=== PATIENT | female | born 1970 | race Caucasian/White ===

== ENCOUNTER → 2018-09-17 | Outpatient (REF) | payer OTHER | LOC: M SFHCLERA 16:58 | PROVIDERS: ATTEND Nurse Practitioner Family | DX: R53.81 Other malaise (principal) ==

== ENCOUNTER → 2019-01-12 | Outpatient (CLI) | payer OTHER ==
--- NOTE | 2019-01-12 10:41 | REP ---
HIDA SCAN WITH GALLBLADDER EJECTION FRACTION: Following the intravenous administration of 6.6 mCi of technetium-99m mebrofenin, multiple images of the right upper quadrant are performed every 5 minutes for a period of 1 hour. The gallbladder is visualized at 10 minutes postinjection. There is biliary to bowel transit at 15 minutes postinjection. There is no scintigraphic evidence of cholecystitis. At the 1 hour tulio 8 ounces of Ensure Enlive are ingested and further imaging performed for 1 hour. Gallbladder activity is measured. The gallbladder ejection fraction is calculated to be 86% which is normal. IMPRESSION: Normal gallbladder ejection fraction. Electronically Signed by Francisco Hines MD 01/12/2019 02:40 P
== END ==
LOC: M RAD 07:10
PROVIDERS: ATTEND Internal Medicine Gastroenterology
DX: R10.9 Unspecified abdominal pain (principal)

== ENCOUNTER → 2021-06-17 | Outpatient (CLI) | payer BC | LOC: M PLALAB 14:37 | PROVIDERS: ATTEND Advanced Practice Midwife | DX: R63.5 Abnormal weight gain (principal) ==

== ENCOUNTER 2023-06-11 06:15 | Inpatient (IN) | payer BC ==
[~2023-06-11] VITALS: Ht 152.4 cm; Wt 88.0 kg
[~2023-06-11 06:15] MED LIST: AMIT25TA19 PO; BACI1CAP4 PO; BISO5TAB14 PO; CVS1CHW13 PO; DICY20TA3 PO; ESTR1TAB PO; LOPE1CAP5 PO; OMEP40CA4 PO; RA T500C2 PO; VITA100093 PO; VITA250C5 PO; ceFAZolin SOD 2 GM in IV 1 EA IV ONE
[2023-06-11] MEDS ORDERED: LR 1,000 ML IV SCH ×2 (06:35→12:30)
[2023-06-11] MEDS ORDERED: fentaNYL 100 MCG/2 ML INJECTION As Ordered ONE (07:12)
[2023-06-11] MEDS ORDERED: ROCURONIUM BROMIDE 50MG/5ML VIAL As Ordered ONE ×3 (07:12→10:47)
[2023-06-11] MEDS ORDERED: LIDOCAINE 2% 100MG/5ML SDV (FOR ANES.) As Ordered ONE (07:12)
[2023-06-11] MEDS ORDERED: ONDANSETRON 4MG 2ML VIAL As Ordered ONE (07:12)
[2023-06-11] MEDS ORDERED: MIDAZOLAM INJ 2MG/2ML VIAL As Ordered ONE (07:12)
[2023-06-11] MEDS ORDERED: ACETAMINOPHEN 1000MG 100ML IV BAG As Ordered ONE (07:12)
[2023-06-11] MEDS ORDERED: propofoL 200 MG/20 ML VIAL As Ordered ONE ×2 (07:12→11:14)
[2023-06-11] MEDS ORDERED: HYDROmorphone HCL 2MG/ML 1ML VIAL As Ordered ONE (07:12)
[2023-06-11] MEDS ORDERED: SUGAMMADEX SODIUM 500 MG/5 ML VIAL (BRIDION) As Ordered ONE (07:19)
[2023-06-11] MEDS ORDERED: LIDOCAINE 1% SDV 30ML VIAL As Ordered ONE (07:20)
[2023-06-11] MEDS ORDERED: PERCOCET 5MG/325MG TAB PO PRN (07:35)
[2023-06-11] MEDS ORDERED: ONDANSETRON 4MG 2ML VIAL IV PRN ×2 (07:35→12:30)
[2023-06-11] MEDS ORDERED: MANNITOL 25% 12.5GM 50ML VIAL As Ordered ONE (07:59)
[2023-06-11] MEDS ORDERED: FILTER 1.2 MICRON (ADULT TPN/MANNITOL/REMICADE) XX ONE (07:59)
[2023-06-11] MEDS: DOCUSATE SODIUM 100MG CAPSULE PO SCH ×2 (09:00→20:08)
[2023-06-11] MEDS ORDERED: fentaNYL 100 MCG/2 ML INJECTION IV PRN (12:30)
[2023-06-11] MEDS ORDERED: oxyCODONE 5MG TAB PO PRN (12:30)
[2023-06-11] MEDS: HYDROMORPHONE HCL 0.5 MG/ 0.5 ML SYRINGE IV PRN ×2 (12:54→13:01)
[2023-06-11 12:57] LABS: HEMATOCRIT 43.1 % (36.0-47.0); HEMOGLOBIN 14.2 g/dl (12.0-15.5); MEAN CORPUSCULAR HEMOGLOBIN 29.8 pg (27.0-33.0); MEAN CORPUSCULAR HGB CONC 32.9 g/dl (32.0-36.5); MEAN CORPUSCULAR VOLUME 90.5 fl (80.0-96.0); PLATELET COUNT, AUTOMATED 260 10^3/uL (150-450); RED BLOOD COUNT 4.76 10^6/uL (4.00-5.40); WHITE BLOOD COUNT 13.2 10^3/uL (4.0-10.0)
[2023-06-11 13:24] LABS: BLOOD UREA NITROGEN 14 MG/DL (9-23); CALCIUM LEVEL 8.4 MG/DL (8.5-10.1); CARBON DIOXIDE LEVEL 27 MMOL/L (20-31); CHLORIDE LEVEL 106 MMOL/L (98-107); CREATININE FOR GFR 0.65 MG/DL (0.55-1.30); GLOMERULAR FILTRATION RATE > 60.0 (>51); GLUCOSE, FASTING 164 MG/DL (60-100); POTASSIUM SERUM 4.7 MMOL/L (3.5-5.1); SODIUM LEVEL 140 MMOL/L (136-145)
[2023-06-11 14:25] VITALS: BP 118/75; TEMP 98.1; O2SAT 96
[2023-06-11 15:15] VITALS: BP_SYST 141; BP_SYST 183; BP_DIAS 78; BP_DIAS 81; TEMP 98.1; O2SAT 100; O2SAT 96
[2023-06-11] MEDS: NS 1,000 ML IV SCH ×2 (16:26→20:07)
[2023-06-11] MEDS: ceFAZolin SOD 1 GM in D5W MINI-BAG PLUS 50 ML IV SCH ×2 (16:27→23:27)
[2023-06-11 16:30] VITALS: BP 144/85; TEMP 98.1; O2SAT 95
[2023-06-11] MEDS: PERCOCET 5MG/325MG TAB PO PRN ×2 (17:04→21:09)
[2023-06-11 18:00] VITALS: BP 140/76; TEMP 98.4; O2SAT 94
[2023-06-11] MEDS ORDERED: LOPERAMIDE 2 MG CAPLET PO PRN (18:35)
[2023-06-11] MEDS ORDERED: DICY-61 PO (19:01)
[2023-06-11] MEDS ORDERED: HOME MED LIST COMPLETE! XX SCH (19:05)
[2023-06-11 19:30] VITALS: BP 135/73; TEMP 98.2; O2SAT 95
[2023-06-11] MEDS: OMEPRAZOLE 20MG CAP PO SCH (19:35)
[2023-06-11] MEDS ORDERED: OMEP-173 PO (19:40)
[2023-06-11] MEDS ORDERED: DICYCLOMINE 10 MG CAP PO ONE (20:00)
[2023-06-11] MEDS: DICYCLOMINE 10 MG CAP PO SCH (20:17)
[2023-06-11] MEDS ORDERED: DICYCLOMINE 10 MG CAP PO SCH (21:00)
[2023-06-11] MEDS ORDERED: AMITRIPTYLINE 25MG TABLET PO SCH (21:00)
[2023-06-11 23:30] VITALS: BP 140/72; TEMP 98.1; O2SAT 94
[2023-06-11] MEDS: ACETAMINOPHEN TAB 650MG DOSE (2X325MG) PO PRN (23:30)
[2023-06-12 03:30] VITALS: BP 132/70; TEMP 98.4; O2SAT 95
[2023-06-12] MEDS: ACETAMINOPHEN TAB 650MG DOSE (2X325MG) PO PRN (03:50)
[2023-06-12] MEDS: PERCOCET 5MG/325MG TAB PO PRN ×3 (05:23→13:27)
[2023-06-12 06:02] LABS: HEMATOCRIT 37.9 % (36.0-47.0); HEMOGLOBIN 12.5 g/dl (12.0-15.5); MEAN CORPUSCULAR HEMOGLOBIN 29.8 pg (27.0-33.0); MEAN CORPUSCULAR VOLUME 90.5 fl (80.0-96.0); PLATELET COUNT, AUTOMATED 298 10^3/uL (150-450); RED BLOOD COUNT 4.19 10^6/uL (4.00-5.40); WHITE BLOOD COUNT 15.2 10^3/uL (4.0-10.0)
[2023-06-12 06:26] LABS: BLOOD UREA NITROGEN 12 MG/DL (9-23); CARBON DIOXIDE LEVEL 27 MMOL/L (20-31); CHLORIDE LEVEL 106 MMOL/L (98-107); CREATININE FOR GFR 0.76 MG/DL (0.55-1.30); GLOMERULAR FILTRATION RATE > 60.0 (>51); GLUCOSE, FASTING 126 MG/DL (60-100); POTASSIUM SERUM 4.4 MMOL/L (3.5-5.1); SODIUM LEVEL 139 MMOL/L (136-145)
[2023-06-12 07:30] VITALS: BP 124/71; TEMP 98.1; O2SAT 90
[2023-06-12] MEDS: DOCUSATE SODIUM 100MG CAPSULE PO SCH (08:08)
[2023-06-12] MEDS ORDERED: INFLUENZA QUADRIVALENT PF VACCINE 0.5ML SYRINGE IM.IMMUN ONE (09:00)
[2023-06-12] MEDS ORDERED: bisoproloL fumarate 5 MG TAB PO SCH (09:00)
[2023-06-12 09:30] VITALS: BP 124/71
[2023-06-12] MEDS: OMEPRAZOLE 20MG CAP PO SCH (09:30)
[2023-06-12] MEDS: DICYCLOMINE 10 MG CAP PO SCH ×2 (09:30→13:29)
[2023-06-12 11:30] VITALS: BP 117/62; TEMP 97.9; O2SAT 92
[2023-06-12] MEDS ORDERED: PERCOCET PO (15:25)
== END 2023-06-12 15:57 | disposition home or self-care (01) | DRG 461 ==
LOC: M OR 06:15 → M MSPAV 14:34
PROVIDERS: ADMIT Urology; ATTEND Urology
PROC: 0TB04ZX Excision of Right Kidney, Percutaneous Endoscopic Approach, Diagnostic (ICD-10-PCS; 2023-06-11)
PROC: 8E0W4CZ Robotic Assisted Procedure of Trunk Region, Percutaneous Endoscopic Approach (ICD-10-PCS; principal; 2023-06-11 07:30)
DX: C64.1 Malignant neoplasm of right kidney, except renal pelvis (principal); Z79.899 Other long term (current) drug therapy; Z88.5 Allergy status to narcotic agent; K21.9 Gastro-esophageal reflux disease without esophagitis; I10 Essential (primary) hypertension; L30.9 Dermatitis, unspecified

== ENCOUNTER → 2023-06-25 | Outpatient (CLI) | payer BC ==
[~2023-06-25] MED LIST changes: +DICY-61 PO; +OMEP-173 PO; +PERCOCET PO; -ceFAZolin SOD 2 GM in IV 1 EA IV ONE
[2023-06-25 14:08] LABS: BLOOD UREA NITROGEN 14 MG/DL (9-23); CALCIUM LEVEL 9.3 MG/DL (8.5-10.1); CARBON DIOXIDE LEVEL 30 MMOL/L (20-31); CHLORIDE LEVEL 105 MMOL/L (98-107); CREATININE FOR GFR 0.75 MG/DL (0.55-1.30); GLOMERULAR FILTRATION RATE > 60.0 (>51); GLUCOSE, FASTING 105 MG/DL (60-100); POTASSIUM SERUM 4.6 MMOL/L (3.5-5.1); SODIUM LEVEL 140 MMOL/L (136-145)
[2023-06-25 14:14] LABS: HEMATOCRIT 39.2 % (36.0-47.0); HEMOGLOBIN 12.6 g/dl (12.0-15.5); MEAN CORPUSCULAR HEMOGLOBIN 29.2 pg (27.0-33.0); MEAN CORPUSCULAR HGB CONC 32.1 g/dl (32.0-36.5); MEAN CORPUSCULAR VOLUME 90.7 fl (80.0-96.0); PLATELET COUNT, AUTOMATED 532 10^3/uL (150-450); RED BLOOD COUNT 4.32 10^6/uL (4.00-5.40); WHITE BLOOD COUNT 9.9 10^3/uL (4.0-10.0)
== END ==
LOC: M PLALAB 09:51
PROVIDERS: ATTEND Urology
DX: C64.1 Malignant neoplasm of right kidney, except renal pelvis (principal)

== ENCOUNTER → 2024-03-04 | Outpatient (CLI) | payer BC ==
[~2024-03-04] MED LIST changes: +ISOVUE-370 76% 100ML VIAL As Ordered ONE
== END ==
LOC: M RAD 09:08
PROVIDERS: ATTEND Urology
DX: C64.1 Malignant neoplasm of right kidney, except renal pelvis (principal)
CPT/HCPCS: 71046; 74170; Q9967

== ENCOUNTER → 2025-03-14 | Outpatient (CLI) | payer BC ==
[~2025-03-14] MED LIST changes: +ISOVUE-370 76% 100 ML VIAL As Ordered ONE; -ISOVUE-370 76% 100ML VIAL As Ordered ONE; -RA T500C2 PO; +TURM500C10 PO
== END ==
LOC: M RAD 16:53
PROVIDERS: ATTEND Urology
DX: C64.1 Malignant neoplasm of right kidney, except renal pelvis (principal)

== ENCOUNTER → 2025-03-20 | Outpatient (REF) | payer BC ==
[~2025-03-20] MED LIST changes: -ISOVUE-370 76% 100 ML VIAL As Ordered ONE
[2025-03-20 18:31] LABS: APPEARANCE, URINE CLEAR (CLEAR); BACTERIA, URINE AUTO NEGATIVE (NEGATIVE); BILIRUBIN, URINE AUTO NEGATIVE (NEGATIVE); BLOOD, URINE BLOOD NEGATIVE (NEGATIVE); GLUCOSE, URINE (UA) AUTO NEGATIVE (NEGATIVE); KETONE, URINE AUTO NEGATIVE (NEGATIVE); LEUKOCYTE ESTERASE, URINE AUTO NEGATIVE (NEGATIVE); NITRITE, URINE AUTO NEGATIVE (NEGATIVE); PROTEIN, URINE AUTO NEGATIVE (NEGATIVE); RBC, URINE AUTO 1 /HPF (0-3); SPECIFIC GRAVITY URINE AUTO 1.008 (1.002-1.035); SQUAMOUS EPITHELIAL CELL UR AU 0 /HPF (0-6); UROBILINOGEN, URINE AUTO 0.2 mg/dL (0.0-2.0); WBC, URINE AUTO 0 /HPF (0-3)
== END ==
LOC: M SMT 17:00
PROVIDERS: ATTEND Urology
DX: R31.29 Other microscopic hematuria (principal)